=== PATIENT | female | born 1965 | race African-American/Black ===

== ENCOUNTER 2024-01-05 13:12 | Observation (INO) ==
[2024-01-05] MEDS: ASPIRIN 81 MG TAB.CHEW PO ONE (13:49)
[2024-01-05] MEDS: NITROGLYCERIN 1 GM OINT...G. TD ONE (13:50)
--- NOTE | 2024-01-05 13:51 | Emergency Department Note ---
HPI - Chest Pain General Chief Complaint: Chest Pain Stated Complaint: CHEST PAIN Time Seen by Provider: 01/05/24 13:44 Source: patient and family Mode of arrival: walk-in Limitations: no limitations History of Present Illness HPI narrative: This is a 58 year old female patient that presents to the ER with c/o substernal chest pain today. Patient denies any abdominal pain, SOB, back pain, fever, chills, or N/V/D. Patient states the chest pain is constant. Patient denies any numbness, tingling, or weakness MD complaint: Reports chest pain Onset (ago): hour(s) (2) Timing of current episode: Reports constant Onset: Reports during rest Pain location: Reports substernal Pain radiation: Reports none Severity: mild Quality: Reports tightness Relieving factors: Reports nothing Exacerbating factors: Reports nothing Treatment prior to arrival: Reports none Risk Factors Coronary artery disease risk factors: Reports hyperlipidemia and hypertension Thoracic aortic dissection risk factors: Reports none Pulmonary embolism risk factors: Reports none Related Data Allergies Allergy/AdvReac Type Severity Reaction Status Date / Time shrimp Allergy Verified 01/05/24 13:32 Review of Systems Status of ROS 10 or more systems reviewed and unremark able except as noted in history and below Constitutional Denies: fever, chills, change in weight, fatigue, malaise or night sweats Eyes Denies: change in vision, blurry vision, blind spots or light sensitivity Ears, nose, mouth, and throat Denies: throat pain, neck pain, throat swelling, difficulty swallowing, hoarseness or mouth pain Cardiovascular Reports: chest pain; Denies: palpitations, edema, swelling of feet/ankles, lightheadedness or shortness of breath with exertion Respiratory Denies: shortness of breath, cough, wheezing, stridor, pain on inspiration or change in phlegm color Gastrointestinal Denies: abdominal pain, nausea, vomiting, coffee grounds in vomit, heartburn or diarrhea Genitourinary Denies: painful urination, urinary frequency, urinary urgency, urinary incontinence or blood in urine Musculoskeletal Reports: extremity swelling (rt ankle); Denies: back pain, neck pain, extremity pain or joint pain Integumentary/Breast Denies: rash, itching, redness, skin pain, skin tenderness or skin swelling Neurological Denies: headache, numbness in extremities, weakness in extremities, lack of coordination, dizziness or vertigo Psychiatric Denies: anxiety, mood swings, panic attacks or change in sleep pattern Endocrine Denies: excessive urination, excessive thirst, fatigue, cold intolerance or excessive sweating Hematologic/Lymphatic Denies: easy bruising or easy bleeding Allergic/Immunologic Denies: hives, throat swelling, tongue swelling or facial swelling Exam Constitutional: normal general appearance and no apparent distress Vital Signs - 24 hr 01/05/24 13:18 01/05/24 13:30 01/05/24 14:00 Temperature 99.4 F Pulse Rate 78 77 76 Respiratory Rate 18 16 16 Blood Pressure 127/65 135/74 112/55 Pulse Oximetry 98 96 95 Oxygen Delivery Me thod Room Air Room Air Room Air 01/05/24 14:30 Temperature Pulse Rate 75 Respiratory Rate 18 Blood Pressure 112/64 Pulse Oximetry 94 L Oxygen Delivery Ma thod Room Air HENMT: normocephalic, head/scalp atraumatic, hearing grossly normal bilaterally, external ears normal and external nose normal Eyes: PERRL, EOMs intact bilaterally, conjunctivae normal and no scleral icterus Neck/C-Spine: visual inspection normal and trachea midline Lymph: no lymphadenopathy noted Chest: inspection of chest normal Respiratory: breath sounds equal bilaterally, normal respiratory effort, clear to auscultation bilaterally, no wheezes, no rales, no retractions and no use of accessory muscles Cardiovascular: normal heart rate noted, regular rhythm noted, no gallop, no rub, no murmur, no JVD, no clicks and peripheral pulses 2+ throughout Gastrointestinal: abdomen normal to inspection, abdomen soft to palpation, nontender to palpation, nontender to percussion, nondistended, normoactive bowel sounds, no hepatosplenomegaly, no masses, no pulsatile mass, no ascites and no hernia Back/Pelvis: spine normal to inspection Extremities: normal to inspection, normal to palpation, no tenderness, full ROM, no joint enlargement and no deformity Neurology: no movement abnormality noted, gait normal, speech normal, coordination normal, no fasciculations noted and GCS normal Psychiatry: mental status grossly normal, oriented x3, thought process normal, cooperative, affect normal and psychomotor activity normal Skin: skin color normal Course Course Hospital Course: 1445: VSS, no s/s of acute distress noted. Due to risk factors, medical history will admit patient to the medical floor for further evaluation and treatment Vital Signs Vital signs: Vital Signs Temperature 99.4 F 01/05/24 13:18 Pulse Rate 78 01/05/24 13:18 Respiratory Rate 18 01/05/24 13:18 Blood Pressure 127/65 01/05/24 13:18 Pulse Oximetry 98 01/05/24 13:18 Oxygen Delivery Method Room Air 01/05/24 13:18 Temperature 99.4 F 01/05/24 13:18 Pulse Rate 75 01/05/24 14:30 Respiratory Rate 18 01/05/24 14:30 Blood Pressure 112/64 01/05/24 14:30 Pulse Oximetry 94 L 01/05/24 14:30 Oxygen Delivery Method Room Air 01/05/24 14:30 MDM - Chest Pain Differential Diagnosis Differential diagnosis: Likely atypical chest pain Medical Records Data Attestation: I reviewed the patient's medical records. Lab Data Attestation: I reviewed the patient's lab results. Labs: Lab Results 01/05/24 Range/Units 13:45 WBC 5.4 (4.3-9.3) K/uL RBC 4.2 (4.00-5.50) M/uL Hgb 11.2 L (12.5-15.8) gm/dL Hct 34.6 L (35.9-46.7) % MCV 81.7 (81.0-93.7) fl MCH 26.4 L (27.6-32.2) pg MCHC 32.3 L (33.1-35.3) g/dl RDW 14.6 H (11.4-14.2) % Plt Count 225 (152-353) K/uL MPV 8.5 (6.9-10.8) fl Gran % 52.8 (47.8-71.3) % Lymph % (Auto) 37.8 (20.0-43.0) % [place] % (Auto) 7.5 (3.6-9.8) % Eos % (Auto) 1.2 (0.4-2.8) % Baso % (Auto) 0.7 (0.1-0.85) Lymph # (Auto) 2.0 (1.1-3.1) [place] # (Auto) 0.4 L (1.1-3.1) Eos # (Auto) 0.1 (0.0-0.2) Baso # (Auto) 0.0 (0.0-0.1) Absolute Gran (auto) 2.8 (2.3-6.0) Sodium 147 H (136-145) mmol/L Potassium 4.2 (3.6-5.2) mmol/L Chloride 110.0 H (98-107) mmol/L Carbon Dioxide 30 (21-32) mmol/L Anion Gap 7.0 (4-14) mEq/L BUN 12 (7-18) mg/dL Creatinine 0.8 (0.6-1.3) mg/dL Estimated GFR 85.4 (>59.9) Glucose 92 (70-110) mg/dL Calcium 8.8 (8.5-10.1) mg/dL Total Bilirubin 0.52 (0.0-1.0) mg/dL AST 23 (15-37) U/L ALT 24 L (30-65) U/L Alkaline Phosphatase 72 (50-136) U/L Troponin I High Sens 6.70 (4.0-60.4) ng/L B-Natriuretic Peptide 39.8 (0-100) pg/mL Total Protein 6.6 (6.4-8.2) g/dL Albumin 3.3 L (3.4-5.0) g/dL Imaging Data Imaging ordered: Chest x-ray My impression: cxr: negative ECG Data Attestation: I have reviewed the pertinent ECG results. Discharge Plan Discharge Patient Disposition: Admitted As Observation Condition: Stable Clinical Impression: Chest pain Time of Disposition: 14:48 [facility] Medical History (Updated 01/05/24 @ 13:36 by Francheska Colorado RN) Hypertension Congestive heart failure Diabetes Surgical History (Updated 01/05/24 @ 13:36 by Francheska Colorado RN) H/O gastric sleeve History of tubal ligation H/O: hysterectomy
[2024-01-05 14:11] LABS: Basophils%(Percent) Auto 0.7 (0.1-0.85); Eosinophils#(Absolute)Auto 0.1 (0.0-0.2); Eosinophils%(Percent) Auto 1.2 % (0.4-2.8); Granulocytes % - Auto 52.8 % (47.8-71.3); Granulocytes#(Absolute)- Auto 2.8 (2.3-6.0); Hematocrit 34.6 % (35.9-46.7); Mean Corpuscular Volume 81.7 fl (81.0-93.7); Monocytes #(Absolute)- Auto 0.4 (1.1-3.1); Monocytes %(Percent)- Auto 7.5 % (3.6-9.8); Platelet Count 225 K/uL (152-353); White Blood Count 5.4 K/uL (4.3-9.3)
[2024-01-05 14:24] LABS: Potassium 4.2 mmol/L (3.6-5.2)
[2024-01-05] MEDS ORDERED: MORPHINE SULFATE 2 MG/ML CARTRIDGE IV PRN (17:23)
[2024-01-05] MEDS: NITROGLYCERIN 1 GM OINT...G. TD SCH (18:26)
[2024-01-06] MEDS: SACUBITRIL/VALSARTAN 49/51 MG TABLET ONE (01:20)
[2024-01-06] MEDS: carvediloL 6.25 MG TABLET PO ONE (01:20)
[2024-01-06] MEDS: FAMOTIDINE 20 MG TABLET ONE (01:20)
[2024-01-06] MEDS: MONTELUKAST SODIUM 10 MG TABLET PO SCH (01:33)
[2024-01-06] MEDS: MONTELUKAST SODIUM 10 MG TABLET PO ONE (01:46)
[2024-01-06] MEDS: PREGABALIN 75 MG CAPSULE PO SCH ×2 (02:43→11:13)
[2024-01-06 06:49] LABS: Basophils%(Percent) Auto 0.6 (0.1-0.85); Eosinophils#(Absolute)Auto 0.1 (0.0-0.2); Eosinophils%(Percent) Auto 1.4 % (0.4-2.8); Granulocytes % - Auto 53.4 % (47.8-71.3); Granulocytes#(Absolute)- Auto 2.9 (2.3-6.0); Hematocrit 35.1 % (35.9-46.7); Mean Corpuscular Volume 81.8 fl (81.0-93.7); Monocytes #(Absolute)- Auto 0.4 (1.1-3.1); Monocytes %(Percent)- Auto 7.6 % (3.6-9.8); Platelet Count 217 K/uL (152-353); White Blood Count 5.5 K/uL (4.3-9.3)
[2024-01-06 07:05] LABS: INR 1.04
[2024-01-06 07:14] LABS: Potassium 3.5 mmol/L (3.6-5.2)
[2024-01-06] MEDS: SACUBITRIL/VALSARTAN 49/51 MG TABLET PO SCH (09:18)
[2024-01-06] MEDS: FAMOTIDINE 20 MG TABLET PO SCH (09:18)
[2024-01-06] MEDS: ASPIRIN 81 MG TAB.CHEW PO SCH (09:19)
[2024-01-06] MEDS: carvediloL 6.25 MG TABLET PO SCH (09:20)
[2024-01-06] MEDS: ACETAMINOPHEN 500 MG TABLET PO ONE (10:18)
[2024-01-06] MEDS: PREGABALIN 25 MG CAPSULE PO SCH (11:14)
[2024-01-06] MEDS: PANTOPRAZOLE SODIUM 40 MG TABLET.DR PO SCH (11:14)
[2024-01-06] MEDS: POTASSIUM CHLORIDE 20 MEQ TAB.ER.PRT PO ONE (11:43)
[2024-01-06 12:04] VITALS: BP 121/62; PULSE 76; RESP 19; TEMP 98.6
--- NOTE | 2024-01-07 10:11 | Short Stay Summary ---
H&P: HPI History of Present Illness Chief complaint: CHEST PAIN Narrative: This is a 58 year old female patient that presents to the ER with c/o substernal chest pain today. Patient denies any abdominal pain, SOB, back pain, fever, chills, or N/V/D. Patient states the chest pain is constant. Patient denies any numbness, tingling, or weakness. Admitted patient for observation and treatment. Review of Systems Status of ROS 10 or more systems reviewed and unremark able except as noted in history and below Constitutional Denies: fever, chills, change in weight, fatigue, malaise or night sweats Eyes Denies: change in vision, blurry vision, blind spots or light sensitivity Ears, nose, mouth, and throat Denies: throat pain, neck pain, throat swelling, difficulty swallowing, hoarseness, mouth pain or vertigo Cardiovascular Reports: chest pain; Denies: palpitations, edema, swelling of feet/ankles, lightheadedness or shortness of breath with exertion Respiratory Denies: shortness of breath, cough, wheezing, stridor, pain on inspiration or change in phlegm color Gastrointestinal Denies: abdominal pain, nausea, vomiting, coffee grounds in vomit, heartburn, diarrhea or difficulty swallowing Genitourinary Denies: painful urination, urinary frequency, urinary urgency, urinary incontinence or blood in urine Musculoskeletal Reports: extremity swelling (rt ankle); Denies: back pain, neck pain, extremity pain or joint pain Integumentary/Breast Denies: rash, itching, redness, skin pain, skin tenderness or skin swelling Neurological Denies: headache, numbness in extremities, weakness in extremities, lack of coordination, dizziness or vertigo Psychiatric Denies: anxiety, mood swings, panic attacks or change in sleep pattern Endocrine Denies: excessive urination, excessive thirst, fatigue, cold intolerance or excessive sweating Hematologic/Lymphatic Denies: easy bruising or easy bleeding Allergic/Immunologic Denies: hives, throat swelling, tongue swelling, facial swelling or wheezing [facility] Medical History (Updated 01/07/24 @ 09:48 by JEAN CLAUDE Frost) Peripheral neuropathy Syncope and collapse Hx of fall Hx of cervical cancer Hyperlipidemia Acid reflux Degenerative disc disease Osteoarthritis Fibromyalgia Depression Anxiety COPD (chronic obstructive pulmonary disease) Asthma Hypertension Congestive heart failure Diabetes Surgical History (Updated 11/24/24 @ 13:36 by Francheska Colorado RN) H/O gastric sleeve History of tubal ligation H/O: hysterectomy Social History Problems where you live: no known problems Highest level of school completed/degree received: College Meds Home Medications and Allergies Home Medications Medication Instructions Recorded Confirmed Type aspirin 81 mg tablet,delayed 81 mg PO DAILY htn #30 tabs 01/06/24 Rx release carvedilol 6.25 mg tablet 6.25 mg PO BID 01/06/24 01/06/24 History citalopram 20 mg tablet 20 mg PO DAILY 01/06/24 01/06/24 History famotidine 20 mg tablet 20 mg PO BID 01/06/24 01/06/24 History levocetirizine 5 mg tablet 5 mg PO DAILY 01/06/24 01/06/24 History methocarbamol 500 mg tablet 500 mg PO BID 01/06/24 01/06/24 History montelukast 10 mg tablet 10 mg PO DAILY 01/06/24 01/06/24 History pregabalin 100 mg capsule See Rx Instructions PO .COMPLEX 01/06/24 01/06/24 History rosuvastatin 20 mg tablet 20 mg PO DAILY 01/06/24 01/06/24 History sacubitril 24 mg-valsartan 26 mg 1 tab PO BEDTIME 01/06/24 01/06/24 History tablet (Entresto) Allergies Allergy/AdvReac Type Severity Reaction Status Date / Time shrimp Allergy Verified 01/05/24 13:32 Exam Exam: Patient was sitting up on side of bed with family at bedside upon encounter for exam. Constitutional: normal general appearance, no apparent distress, abnormal body habitus (obese), no limitations and alert Vital Signs - 24 hr 01/05/24 17:16 01/05/24 17:30 01/05/24 17:43 Temperature 98.0 F Pulse Rate 69 74 Pulse Rate [Bilate ral] Respiratory Rate 16 19 Blood Pressure 112/65 107/65 Blood Pressure [Ri ght Radial Artery] Pulse Oximetry 97 97 Oxygen Delivery Me thod Room Air Room Air 01/05/24 20:00 01/05/24 20:09 01/05/24 23:16 Temperature 98.1 F Pulse Rate Pulse Rate [Bilate ral] 69 Respiratory Rate 17 Blood Pressure 118/68 116/68 Blood Pressure [Ri ght Radial Artery] 118/68 Pulse Oximetry 100 Oxygen Delivery Me thod Room Air 01/05/24 23:52 01/06/24 00:49 01/06/24 03:57 Temperature 98.2 F 98.0 F Pulse Rate Pulse Rate [Bilate ral] 57 L 72 Respiratory Rate 18 17 Blood Pressure 101/57 Blood Pressure [Ri ght Radial Artery] 101/57 97/51 Pulse Oximetry 100 98 Oxygen Delivery Me thod Room Air Room Air 01/06/24 06:13 01/06/24 07:51 01/06/24 10:39 Temperature 98.5 F Pulse Rate 71 Pulse Rate [Bilate ral] 73 Respiratory Rate 18 Blood Pressure 97/51 116/71 Blood Pressure [Ri ght Radial Artery] 106/66 Pulse Oximetry 96 Oxygen Delivery Me thod Room Air 01/06/24 11:00 01/06/24 11:39 01/06/24 12:00 Temperature 98.6 F Pulse Rate 76 84 Pulse Rate [Bilate ral] 76 Respiratory Rate 19 Blood Pressure 119/84 119/86 Blood Pressure [Ri ght Radial Artery] 121/62 Pulse Oximetry 96 Oxygen Delivery Me thod Room Air HENMT: normocephalic, head/scalp atraumatic, hearing grossly normal bilaterally, external ears normal and external nose normal Eyes: PERRL, EOMs intact bilaterally, conjunctivae normal, alignment normal, periorbital findings normal and visual acuity normal Neck/C-Spine: trachea midline Lymph: no lymphadenopathy noted and no lymphedema noted Chest: inspection of chest normal and palpation of chest normal Respiratory: breath sounds equal bilaterally, normal respiratory effort and no wheezes Cardiovascular: normal heart rate noted, regular rhythm noted and no murmur Gastrointestinal: abdomen normal to inspection, abdomen soft to palpation, nontender to palpation, nondistended and normoactive bowel sounds Genitourinary: no CVA tenderness and bladder normal to palpation Back/Pelvis: spine normal to inspection Extremities: normal to inspection, normal to palpation, no tenderness, full ROM and no deformity Neurology: finisher denture II-XII intact, no focal motor deficit noted, gait abnormality noted (unable to access), speech normal and coordination normal Psychiatry: Mental Status Exam documented within this Exam's Psych section mental status grossly normal, oriented x3, thought process normal, cooperative, affect normal and memory normal Skin: skin color normal and skin turgor normal Assessment and Plan Assessment and Plan (1) Chest pain at rest: Code(s): R07.9 - Chest pain, unspecified (2) Peripheral neuropathy: Qualifiers: Peripheral neuropathy type: polyneuropathy, unspecified Qualified Code(s): G62.9 - Polyneuropathy, unspecified Code(s): G62.9 - Polyneuropathy, unspecified (3) Congestive heart failure: Qualifiers: Heart failure type: unspecified Heart failure chronicity: unspecified Qualified Code(s): I50.9 - Heart failure, unspecified Code(s): I50.9 - Heart failure, unspecified (4) Hypertension: Qualifiers: Hypertension type: primary hypertension Qualified Code(s): I10 - Essential (primary) hypertension Code(s): I10 - Essential (primary) hypertension (5) Anxiety: Code(s): F41.9 - Anxiety disorder, unspecified (6) Hyperlipidemia: Qualifiers: Hyperlipidemia type: unspecified Qualified Code(s): E78.5 - Hyperlipidemia, unspecified Code(s): E78.5 - Hyperlipidemia, unspecified (7) Diabetes: Qualifiers: Diabetes mellitus type: type 2 Diabetes mellitus long[place] headgate operator insulin use: with long-term use Code(s): E11.9 - Type 2 diabetes mellitus without complications (8) Syncope and collapse: Code(s): R55 - Syncope and collapse (9) Acid reflux: Qualifiers: Esophagitis presence: esophagitis presence not specified Qualified Code(s): K21.9 - Gastro-esophageal reflux disease without esophagitis Code(s): K21.9 - Gastro-esophageal reflux disease without esophagitis Plan Aspirin 324 mg PO Daily Morphine Sulfate 2 mg IV Q2H PRN Famotidine 20 mg PO BID Pregabalin 200 mg PO BID Carbedilol 6.25 mg PO BID Sacubitril/Valsartan 1 each PO BID Montelukast Sodium 10 mg PO Bedtime Potassium Chloride 40 meq PO ONCE Pantoprazole Sodium 40 mg PO Daily Acetaminophen 1,000 mg PO ONCE Pregabalin 150 mg PO BID Pregabalin 50 mg PO BID Patient acute symptoms and problems have resolved and back to patient's baseline. Patient is ready to be discharged home with a cardiology follow up and post hospital PCP follow up. Results Labs Labs: CBC WBC 5.5 K/uL (4.3-9.3) 01/06/24 06:30 RBC 4.3 M/uL (4.00-5.50) 01/06/24 06:30 Hgb 11.4 gm/dL (12.5-15.8) L 01/06/24 06:30 Hct 35.1 % (35.9-46.7) L 01/06/24 06:30 MCV 81.8 fl (81.0-93.7) 01/06/24 06:30 MCH 26.5 pg (27.6-32.2) L 01/06/24 06:30 MCHC 32.4 g/dl (33.1-35.3) L 01/06/24 06:30 RDW 14.9 % (11.4-14.2) H 01/06/24 06:30 Plt Count 217 K/uL (152-353) 01/06/24 06:30 MPV 7.8 fl (6.9-10.8) 01/06/24 06:30 Gran % 53.4 % (47.8-71.3) 01/06/24 06:30 Lymph % (Auto) 37.0 % (20.0-43.0) 01/06/24 06:30 [place] % (Auto) 7.6 % (3.6-9.8) 01/06/24 06:30 Eos % (Auto) 1.4 % (0.4-2.8) 01/06/24 06:30 Baso % (Auto) 0.6 (0.1-0.85) 01/06/24 06:30 Lymph # (Auto) 2.0 (1.1-3.1) 01/06/24 06:30 [place] # (Auto) 0.4 (1.1-3.1) L 01/06/24 06:30 Eos # (Auto) 0.1 (0.0-0.2) 01/06/24 06:30 Baso # (Auto) 0.0 (0.0-0.1) 01/06/24 06:30 Absolute Gran (auto) 2.9 (2.3-6.0) 01/06/24 06:30 BMP Sodium 147 mmol/L (136-145) H 01/06/24 06:30 Potassium 3.5 mmol/L (3.6-5.2) L 01/06/24 06:30 Chloride 109.0 mmol/L (98-107) H 01/06/24 06:30 Carbon Dioxide 30 mmol/L (21-32) 01/06/24 06:30 Anion Gap 8.0 mEq/L (4-14) 01/06/24 06:30 BUN 12 mg/dL (7-18) 01/06/24 06:30 Creatinine 0.7 mg/dL (0.6-1.3) 01/06/24 06:30 Estimated GFR 100.2 (>59.9) 01/06/24 06:30 Glucose 90 mg/dL (70-110) 01/06/24 06:30 Calcium 8.4 mg/dL (8.5-10.1) L 01/06/24 06:30 Magnesium 1.9 mg/dL (1.8-2.4) 01/06/24 06:30 Total Bilirubin 0.58 mg/dL (0.0-1.0) 01/06/24 06:30 AST 15 U/L (15-37) 01/06/24 06:30 ALT 19 U/L (30-65) L 01/06/24 06:30 Alkaline Phosphatase 65 U/L (50-136) 01/06/24 06:30 Total Protein 6.0 g/dL (6.4-8.2) L 01/06/24 06:30 Albumin 3.0 g/dL (3.4-5.0) L 01/06/24 06:30 Cardiac Enzymes Troponin I High Sens <4.00 ng/L (4.0-60.4) L 01/06/24 01:40 Liver Function Total Bilirubin 0.58 mg/dL (0.0-1.0) 01/06/24 06:30 AST 15 U/L (15-37) 01/06/24 06:30 ALT 19 U/L (30-65) L 01/06/24 06:30 Alkaline Phosphatase 65 U/L (50-136) 01/06/24 06:30 Total Protein 6.0 g/dL (6.4-8.2) L 01/06/24 06:30 Albumin 3.0 g/dL (3.4-5.0) L 01/06/24 06:30 Imaging Imaging ordered: Chest x-ray Radiologist's impression: XR CHEST 1V Date of Service: 01/05/24 HISTORY: painpain; COMPARISON: 03/13/2022 FINDINGS: The trachea is midline. The cardiac silhouette is unremarkable . The lungs are clear without focal infiltrate or effusion. The bony thorax is unremarkable. IMPRESSION: Normal chest DS: Providers Provider Date of admission: 01/05/24 15:18 Primary care physician: ALEKS ORTIZ Admitting clinician: Laurita Pearce Attending physician on admission: Maine Zimmerman Attending physician on discharge: Maine Zimmerman Discharging clinician: Maine Zimmerman Anticipated date of discharge: 01/07/24 DS: Summary Hospital Course Hospital Course: This is a 58 year old female patient that presents to the ER with c/o substernal chest pain today. Patient denies any abdominal pain, SOB, back pain, fever, chills, or N/V/D. Patient states the chest pain is constant. Patient denies any numbness, tingling, or weakness. Admitted patient to med/surg for observation and treatment. Patient reports she has fell twice in the past month, she is unsure on what is causing falls. 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 Patient reports she had a recent cardiology appointment on 12/20/23. Patient also reports a history of Congestive Heart Failure. Patient has been on a burlapper during her stay. Patient has responded well to treatment plan and hospital stay has been uneventful. Acute symptoms and problems have been resolved and returned to patient's baseline at this time. Patient is ready ready for discharge home with self care and recommendations not to drive until cleared by cardiology and PCP, due to recent syncopal episodes. Confirmed upcoming cardiology appointment, sent current hospital stay record for continuation of care. PCP appointment was scheduled for within 5-7 days of discharge. Status at Discharge Functional status at discharge: independent ambulation Overall status at discharge: patient is back to baseline Time Spent with Patient Time attestation: Total time spent providing and/or coordinating discharge services: Time spent: greater than 30 minutes Discharge Plan Discharge Disposition: Home, Self-Care Condition: Improved Discharge Medications: New aspirin 81 mg tablet,delayed release (/EC) 81 mg PO DAILY Qty: 30 0RF Continued rosuvastatin 20 mg tablet 20 mg PO DAILY Entresto 24-26 mg tablet 1 tab PO BEDTIME montelukast 10 mg tablet 10 mg PO DAILY famotidine 20 mg tablet 20 mg PO BID citalopram 20 mg tablet 20 mg PO DAILY carvedilol 6.25 mg tablet 6.25 mg PO BID Patient Comments: TAKE WITH FOOD methocarbamol 500 mg tablet 500 mg PO BID pregabalin 100 mg capsule See Rx Instructions PO .COMPLEX Rx Instructions: Take 1 capsule (100 mg) by mouth in the morning and 2 capsules (200 mg) by mouth in the evening levocetirizine 5 mg tablet 5 mg PO DAILY Discharge Orders: Discharge Order (Routine); Ordered 01/06/24 Ordered By: Maine Zimmerman Activity: increase activity as tolerated Activity Detail: No driving until cleared by her PCP Diet: diabetic diet Interventions: MED/SURG & ICU Observation Charge Sheet Last Done: 01/06/24 13:10 Activity Restrictions/Additional Instructions: Needs Nuclear stress test 02/[address] Lynn and ECHO repeat 02/07 and needs carotids as an outpatient see her PCP this week and consider appropiate speciality referrals for possible syncopal episodes over the last 2 months No driving until released by her PCP and cardiology needs an abdominal aortic screening Forms: Portal/Health Info Access Inst Follow-Ups: ALEKS ORTIZ [Primary Care Provider] - (PATIENT STATES THAT SHE WILL RUTH E HER OWN FOLLOW UP APPOINTMENT WITH HER PCP) Discharge Date/Time: 01/06/24 12:45
== END 2024-01-06 12:45 | disposition home or self-care (01) ==
LOC: ED 13:12 → MS 13:12
PROVIDERS: ADMIT Family Medicine; ATTEND Family Medicine
DX: G62.9 Polyneuropathy, unspecified; R55 Syncope and collapse; E78.49 Other hyperlipidemia; K21.9 Gastro-esophageal reflux disease without esophagitis; F41.9 Anxiety disorder, unspecified; I11.0 Hypertensive heart disease with heart failure; R07.89 Other chest pain; I50.9 Heart failure, unspecified; E11.9 Type 2 diabetes mellitus without complications